=== PATIENT | female | born 1995 | race Two or more races ===

== ENCOUNTER → 2017-01-15 | Outpatient (CLI) | payer MEDICAID ==
[2017-01-15 15:04] LABS: Basophils # (auto) 0.1 uL; Basophils % (auto) 0.8 % (0.0-2.0); Eosinophils # (auto) 0.1 uL; Eosinophils % (auto) 0.6 % (0.0-7.0); Hematocrit 41.5 % (36.0-46.0); Hemoglobin 14.2 g/dL (12.2-16.2); Lymphocytes # (auto) 2.2 uL; Lymphocytes % (auto) 22.9 % (10.0-50.0); Mean Corpuscular Hemoglobin 30.5 pg (28.0-32.0); Mean Corpuscular Hgb Conc. 34.2 g/dL (32.0-36.0); Mean Corpuscular Volume 89.3 fL (80.0-100.0); Mean Platelet Volume 8.7 fL (6.9-10.8); Monocytes # (auto) 0.4 uL; Monocytes % (auto) 4.6 % (0.0-12.0); Neutrophils # (auto) 6.8 uL; Neutrophils % (auto) 71.1 % (37.0-80.0); Nucleated Red Blood Cells % 0.1 %; Platelet Count (auto) 222 10^3/uL (140-450); Red Cell Distribution Width 13.6 % (11.8-14.3); White Blood Cell 9.5 10^3/uL (4.4-10.8)
== END | disposition home or self-care (01) ==
LOC: LAB 13:49
PROVIDERS: ATTEND Obstetrics & Gynecology
DX: Z34.00 Encounter for supervision of normal first pregnancy, unspecified trimester (principal); Z3A.00 Weeks of gestation of pregnancy not specified
CPT/HCPCS: 36415; 80307; 81220; 83036; 84144; 84702; 85025; 86592; 86703; 86762; 86850; 86900; 86901; 87086; 87340

== ENCOUNTER 2017-03-19 13:35 | Observation (INO) | payer MEDICAID ==
[2017-03-19] MEDS ORDERED: PREN-153 OR (14:06)
[2017-03-19 14:52] LABS: Urine Amorphous Crystal FEW /hpf (None Seen); Urine Bacteria FEW /hpf (None Seen); Urine Blood Negative /uL (Negative); Urine Mucus FEW (None Seen); Urine Specific Gravity 1.017 (1.001-1.035); Urine WBC 1 /hpf (0 - 5)
== END 2017-03-19 14:20 | disposition home or self-care (01) | DRG 566 ==
LOC: LDRP 13:35
PROVIDERS: ADMIT Obstetrics & Gynecology; ATTEND Obstetrics & Gynecology
DX: O23.42 Unspecified infection of urinary tract in pregnancy, second trimester (principal); Z3A.20 20 weeks gestation of pregnancy
CPT/HCPCS: 59025; 81001; 81002; G0378

== ENCOUNTER 2017-05-15 18:31 | Observation (INO) | payer MEDICAID ==
[~2017-05-15 18:31] MED LIST: PREN-153 OR
[2017-05-15] MEDS ORDERED: TERBUTALINE SULFATE 1 MG/ML 1ML VIAL SC ONE (19:47)
[2017-05-15 19:49] LABS: Urine Bacteria FEW /hpf (None Seen); Urine Blood 1+ /uL (Negative); Urine Mucus FEW (None Seen); Urine Specific Gravity 1.009 (1.001-1.035); Urine WBC 15 /hpf (0 - 5)
[2017-05-15] MEDS: TERBUTALINE SULFATE 1 MG/ML 1ML VIAL SC SCH ×2 (19:50→20:15)
[2017-05-15] MEDS ORDERED: LACTATED RINGER'S 1,000 ML IV ONE (22:52)
== END 2017-05-15 21:45 | disposition home or self-care (01) | DRG 566 ==
LOC: LDRP 18:31
PROVIDERS: ADMIT Specialist; ATTEND Specialist
DX: O23.43 Unspecified infection of urinary tract in pregnancy, third trimester (principal); O26.893 Other specified pregnancy related conditions, third trimester; R10.9 Unspecified abdominal pain; O23.593 Infection of other part of genital tract in pregnancy, third trimester; Z3A.28 28 weeks gestation of pregnancy
CPT/HCPCS: 59025; 76815; 81001; 81002; 94760; 96372; G0378; J3105; 96365

== ENCOUNTER 2017-08-04 13:40 | Observation (INO) | payer MEDICAID | END 2017-08-04 15:25 | disposition home or self-care (01) | DRG 566 | LOC: LDRP 13:40 | PROVIDERS: ADMIT Obstetrics & Gynecology; ATTEND Obstetrics & Gynecology | DX: O48.0 Post-term pregnancy (principal); O26.893 Other specified pregnancy related conditions, third trimester; N89.8 Other specified noninflammatory disorders of vagina; Z3A.40 40 weeks gestation of pregnancy | CPT/HCPCS: 59025; 76818; 81002; G0378 ==

== ENCOUNTER 2017-08-06 11:02 | Observation (INO) | payer MEDICAID | END 2017-08-06 12:05 | disposition home or self-care (01) | DRG 566 | LOC: LDRP 11:02 | PROVIDERS: ADMIT Obstetrics & Gynecology; ATTEND Obstetrics & Gynecology | DX: O48.0 Post-term pregnancy (principal); O26.893 Other specified pregnancy related conditions, third trimester; N89.8 Other specified noninflammatory disorders of vagina; Z3A.40 40 weeks gestation of pregnancy; O62.9 Abnormality of forces of labor, unspecified | CPT/HCPCS: 59025; 76818; 81002; G0378 ==

== ENCOUNTER 2017-08-07 19:05 | Observation (INO) | payer MEDICAID | END 2017-08-07 20:14 | disposition home or self-care (01) | DRG 566 | LOC: LDRP 19:05 | PROVIDERS: ADMIT Obstetrics & Gynecology; ATTEND Obstetrics & Gynecology | DX: O36.8130 Decreased fetal movements, third trimester, not applicable or unspecified (principal); O48.0 Post-term pregnancy; O62.9 Abnormality of forces of labor, unspecified; O42.92 Full-term premature rupture of membranes, unspecified as to length of time between rupture and onset of labor; Z3A.40 40 weeks gestation of pregnancy | CPT/HCPCS: 59025; 76815; 81002; G0378 ==

== ENCOUNTER 2017-08-09 09:05 | Observation (INO) | payer MEDICAID | END 2017-08-09 10:40 | disposition home or self-care (01) | DRG 566 | LOC: LDRP 09:05 | PROVIDERS: ADMIT Obstetrics & Gynecology; ATTEND Obstetrics & Gynecology | DX: O42.92 Full-term premature rupture of membranes, unspecified as to length of time between rupture and onset of labor (principal); O48.0 Post-term pregnancy; Z3A.40 40 weeks gestation of pregnancy | CPT/HCPCS: 59025; 76818; 81002; 82948; G0378 ==

== ENCOUNTER 2017-08-10 08:05 | Inpatient (IN) | payer MEDICAID ==
[~2017-08-10] VITALS: Ht 160 cm; Wt 83.9 kg
[2017-08-10] MEDS ORDERED: LACT. RINGERS/OXYTOCIN 20UNITS 500 ML IV ONE (08:31)
[2017-08-10] MEDS ORDERED: ONDANSETRON HCL 4 MG/2 ML VIAL IV PRN (08:45)
[2017-08-10] MEDS ORDERED: BUTORPHANOL TARTRATE 2 MG/1 ML VIAL IV PRN (08:45)
[2017-08-10] MEDS ORDERED: METHYLERGONOVINE MALEATE 0.2 MG/ML AMP IM ONE (08:45)
[2017-08-10] MEDS ORDERED: LIDOCAINE 1% (LOCAL ANESTH.) PF 5ml SDV IJ ONE (08:45)
[2017-08-10] MEDS ORDERED: CARBOPROST TROMETHAMINE 250 MCG/1ML VIAL IM ONE (08:45)
[2017-08-10] MEDS ORDERED: LIDOCAINE 2% (LOCAL ANESTH.) PF 5ml SDV ID ONE (08:45)
[2017-08-10] MEDS: LACTATED RINGER'S 1,000 ML IV SCH ×2 (09:05→15:55)
[2017-08-10 10:10] LABS: Basophils # (auto) 0 uL; Basophils % (auto) 0.1 % (0.0-2.0); Eosinophils # (auto) 0.1 uL; Hemoglobin 10.3 g/dL (12.2-16.2); Lymphocytes # (auto) 1.7 uL; Monocytes # (auto) 0.8 uL; Monocytes % (auto) 8.9 % (0.0-12.0); Neutrophils % (auto) 71.7 % (37.0-80.0)
[2017-08-10 10:11] LABS: Eosinophils % (auto) 0.9 % (0.0-7.0); Hematocrit 32.6 % (36.0-46.0); Lymphocytes % (auto) 18.4 % (10.0-50.0); Mean Corpuscular Hemoglobin 24.8 pg (28.0-32.0); Mean Corpuscular Hgb Conc. 31.5 g/dL (32.0-36.0); Mean Corpuscular Volume 78.7 fL (80.0-100.0); Neutrophils # (auto) 6.7 uL; Nucleated Red Blood Cells % 0.2 %; Platelet Count (auto) 255 10^3/uL (140-450); Red Blood Cells 4.14 10^6/uL (4.0-5.20); Red Cell Distribution Width 17.6 % (11.8-14.3); White Blood Cell 9.3 10^3/uL (4.4-10.8)
[2017-08-10 10:26] LABS: INR 0.94 (0.9-1.15); Partial Thromboplastin Time 28.9 sec (23.78-33.04); Prothrombin Time 10.1 sec (9.27-12.13)
[2017-08-10 10:32] LABS: Albumin 2.2 g/dL (3.4-5.0); BUN/Creatinine Ratio 17.4; Calcium 8.3 mg/dL (8.5-10.1); Potassium 3.9 mmol/L (3.5-5.1)
[2017-08-10 10:33] LABS: Alcohol, Urine < 3.0 mg/dL (0-5); Amphetamine Screen, Urine NEGATIVE (NEGATIVE); Barbiturate Scree,Urine NEGATIVE (NEGATIVE); Benzodiazephine Screen, Urine NEGATIVE (NEGATIVE); Cannabinoid Screen, Urine NEGATIVE (NEGATIVE); Cocaine Screen, Urine NEGATIVE (NEGATIVE); Opiate Scree,Urine NEGATIVE (NEGATIVE); Phencyclidine Screen, Urine NEGATIVE (NEGATIVE)
[2017-08-10 10:35] LABS: Bilirubin, Total 0.2 mg/dL (0.2-1.0); Total Protein 5.9 g/dL (6.4-8.2)
[2017-08-10 10:50] LABS: Uric Acid 4.2 mg/dL (2.6-6.0)
[2017-08-10] MEDS ORDERED: WITCH HAZEL-GLYCERIN PAD TOP PRN (16:00)
[2017-08-10] MEDS ORDERED: PHISODERM TOP SOLN 240ML BTL TOP PRN (16:00)
[2017-08-10] MEDS ORDERED: DERMOPLAST 60ML BOTTLE TOP PRN (16:00)
[2017-08-11] MEDS: LACT. RINGERS/OXYTOCIN 20UNITS 1,000 ML IV SCH ×4 (05:31→18:53)
[2017-08-11] MEDS ORDERED: LACT. RINGERS/OXYTOCIN 20UNITS 1,000 ML IV SCH (06:03)
[2017-08-11] MEDS ORDERED: TERBUTALINE SULFATE 1 MG/ML 1ML VIAL SC ONE (07:15)
[2017-08-11] MEDS: LACTATED RINGER'S 1,000 ML IV SCH ×4 (07:45→22:12)
[2017-08-11 11:07] LABS: Urine Amorphous Crystal FEW /hpf (None Seen); Urine Bacteria MOD /hpf (None Seen); Urine Blood Negative /uL (Negative); Urine Specific Gravity 1.007 (1.001-1.035); Urine WBC 48 /hpf (0 - 5)
[2017-08-11] MEDS ORDERED: BUTORPHANOL TARTRATE 2 MG/1 ML VIAL IV PRN (14:45)
[2017-08-11] MEDS ORDERED: BUTORPHANOL TARTRATE 2 MG/1 ML VIAL IV ONE (14:45)
[2017-08-11] MEDS ORDERED: diphenhdrAMINE HCL 50 MG/1 ML VL IV PRN (16:15)
[2017-08-11] MEDS ORDERED: ONDANSETRON HCL 4 MG/2 ML VIAL IV PRN ×2 (16:15→18:00)
[2017-08-11] MEDS ORDERED: ePHEDrine SULFATE 50 MG/ML AMP IV PRN (16:15)
[2017-08-11] MEDS ORDERED: KETOROLAC TROMETH 30 MG/ML 1ML VIAL IV ONE (16:15)
[2017-08-11] MEDS ORDERED: LABETALOL HCL 5 MG/ML 4ML SYRINGE IV PRN (16:15)
[2017-08-11] MEDS ORDERED: MIDAZOLAM HCL 1MG/1ML-2 ML VIAL IV PRN (16:15)
[2017-08-11] MEDS ORDERED: DEXAMETHASONE SOD PHOS 10MG/1ML VIAL INJ IV PRN (16:15)
[2017-08-11] MEDS ORDERED: KETOROLAC TROMETH 30 MG/ML 1ML VIAL IV PRN (16:15)
[2017-08-11] MEDS ORDERED: HYDROmorphone HCL 2 MG/ML VL IV PRN (16:15)
[2017-08-11] MEDS ORDERED: NALOXONE HCL 0.4 MG/ML VIAL IV PRN (16:15)
[2017-08-11] MEDS ORDERED: NALBUPHINE HCL 10 MG/1ml INJECTION SUBCUT ONE (16:15)
[2017-08-11] MEDS ORDERED: TETRACAINE 1% INJ 2 ML VIAL IJ ONE ×2 (16:27→16:29)
[2017-08-11] MEDS ORDERED: MIDAZOLAM HCL 1MG/1ML-2 ML VIAL ONE (16:34)
[2017-08-11] MEDS ORDERED: MORPHINE SULF(PF) 0.5MG/ML 10ML VIAL ONE (16:34)
[2017-08-11] MEDS ORDERED: fentaNYL CITRATE 100 MCG/2 ML VL ONE (16:34)
[2017-08-11] MEDS ORDERED: ceFAZolin 1GM/50ML 50 ML IV SCH (18:00)
[2017-08-11] MEDS ORDERED: MEPERIDINE HCL (50 MG/ML) 1 ML VIAL IV PRN (18:00)
[2017-08-11 18:07] VITALS: BP 130/79
[2017-08-11] MEDS: KETOROLAC TROMETH 30 MG/ML 1ML VIAL IV SCH (18:45)
[2017-08-11 19:00] VITALS: BP 118/67
[2017-08-11 20:00] VITALS: BP 135/72
[2017-08-11 21:00] VITALS: BP 138/88
[2017-08-11 22:00] VITALS: BP 122/66
[2017-08-11] MEDS ORDERED: MORPHINE SULFATE 8mg/ml INJ SDV IV PRN (22:30)
[2017-08-11 23:00] VITALS: BP 115/56
[2017-08-12] VITALS (12 sets, daily range): BP systolic 97–129; BP diastolic 49–76
[2017-08-12] MEDS: KETOROLAC TROMETH 30 MG/ML 1ML VIAL IV SCH ×2 (00:15→05:37)
[2017-08-12] MEDS: ceFAZolin 1GM/50ML 50 ML IV SCH ×3 (00:58→17:12)
[2017-08-12] MEDS ORDERED: LACTATED RINGER'S 250 ML IV ONE (01:45)
[2017-08-12] MEDS ORDERED: LACTATED RINGER'S 750 ML IV ONE (02:45)
[2017-08-12] MEDS ORDERED: BISACODYL 10 MG RECT SUPP PR PRN (07:45)
[2017-08-12] MEDS ORDERED: HYDROcodone-ACET 5/325MG TAB PO PRN (07:45)
[2017-08-12] MEDS ORDERED: LACTATED RINGER S IV ONE (07:45)
[2017-08-12 08:04] LABS: Basophils # (auto) 0 uL; Eosinophils # (auto) 0 uL; Hemoglobin 8.6 g/dL (12.2-16.2); Monocytes # (auto) 0.9 uL; Nucleated Red Blood Cells % 0.1 %; Red Cell Distribution Width 17.8 % (11.8-14.3)
[2017-08-12 08:06] LABS: Basophils % (auto) 0.1 % (0.0-2.0); Eosinophils % (auto) 0.3 % (0.0-7.0); Hematocrit 26.2 % (36.0-46.0); Lymphocytes % (auto) 17.8 % (10.0-50.0); Mean Corpuscular Hemoglobin 25.7 pg (28.0-32.0); Mean Corpuscular Hgb Conc. 32.8 g/dL (32.0-36.0); Mean Corpuscular Volume 78.3 fL (80.0-100.0); Monocytes % (auto) 7.9 % (0.0-12.0); Neutrophils # (auto) 8.3 uL; Neutrophils % (auto) 73.9 % (37.0-80.0); Platelet Count (auto) 186 10^3/uL (140-450); Red Blood Cells 3.34 10^6/uL (4.0-5.20); White Blood Cell 11.3 10^3/uL (4.4-10.8)
[2017-08-12] MEDS ORDERED: FERROUS SULFATE 325 MG TAB PO ONE (08:36)
[2017-08-12] MEDS: FERROUS SULFATE 325 MG TAB PO SCH ×2 (09:07→21:41)
[2017-08-12] MEDS: DOCUSATE CALCIUM 240 MG CAP PO SCH (09:10)
[2017-08-12] MEDS: DOCUSATE SOD 100 MG CAP PO SCH ×2 (09:10→21:41)
[2017-08-12] MEDS: LACTATED RINGER'S 1,000 ML IV SCH ×3 (10:19→21:10)
[2017-08-12] MEDS: SIMETHICONE 80 MG CHEWABLE TABLET PO SCH ×3 (11:53→21:41)
[2017-08-12] MEDS: HYDROcodone-ACET 5/325MG TAB PO PRN ×2 (14:45→19:41)
[2017-08-13 03:00] VITALS: BP 134/77
[2017-08-13] MEDS: HYDROcodone-ACET 5/325MG TAB PO PRN ×3 (03:16→17:39)
[2017-08-13] MEDS: LACTATED RINGER'S 1,000 ML IV SCH (03:30)
[2017-08-13] MEDS: SIMETHICONE 80 MG CHEWABLE TABLET PO SCH ×4 (05:52→22:29)
[2017-08-13 07:00] VITALS: BP 137/81
[2017-08-13] MEDS: DOCUSATE SOD 100 MG CAP PO SCH ×2 (10:25→22:29)
[2017-08-13] MEDS: DOCUSATE CALCIUM 240 MG CAP PO SCH (10:25)
[2017-08-13] MEDS: FERROUS SULFATE 325 MG TAB PO SCH ×2 (10:25→22:29)
[2017-08-13 10:30] VITALS: BP 126/69
[2017-08-13 11:04] LABS: RPR Non Reactive (Non Reactive)
[2017-08-13 15:00] VITALS: BP 130/78
[2017-08-13 19:00] VITALS: BP 125/72
[2017-08-13] MEDS: IBUPROFEN 800 MG TAB PO PRN (20:50)
[2017-08-13 23:00] VITALS: BP 122/73
[2017-08-14 03:00] VITALS: BP 117/73
[2017-08-14] MEDS: HYDROcodone-ACET 5/325MG TAB PO PRN ×2 (03:31→10:01)
[2017-08-14] MEDS: IBUPROFEN 800 MG TAB PO PRN (05:25)
[2017-08-14] MEDS: SIMETHICONE 80 MG CHEWABLE TABLET PO SCH (06:07)
[2017-08-14 07:00] VITALS: BP 116/70
[2017-08-14] MEDS: FERROUS SULFATE 325 MG TAB PO SCH (09:51)
[2017-08-14] MEDS: DOCUSATE CALCIUM 240 MG CAP PO SCH (09:51)
[2017-08-14] MEDS: DOCUSATE SOD 100 MG CAP PO SCH (09:51)
[2017-08-14 11:00] VITALS: BP 113/72
== END 2017-08-14 14:25 | disposition home or self-care (01) | DRG 540 ==
LOC: LDRP 08:05
PROVIDERS: ADMIT Obstetrics & Gynecology; ATTEND Obstetrics & Gynecology
PROC: 10D00Z1 Extraction of Products of Conception, Low, Open Approach (ICD-10-PCS; principal; 2017-08-11 16:41)
DX: O48.0 Post-term pregnancy (principal); E66.9 Obesity, unspecified; O77.0 Labor and delivery complicated by meconium in amniotic fluid; O99.214 Obesity complicating childbirth; O66.2 Obstructed labor due to unusually large fetus; O62.0 Primary inadequate contractions; Z37.0 Single live birth; Z3A.41 41 weeks gestation of pregnancy; Z68.32 Body mass index [BMI] 32.0-32.9, adult; O62.1 Secondary uterine inertia
CPT/HCPCS: 36415; 80053; 80307; 81001; 84550; 85025; 85610; 85730; 86592; 86850; 86900; 86901; 96361; 96365; 96366; 96374; 96375; J0690; J1885; J2250; J2405; J2590